=== PATIENT | female | born 1965 | race Caucasian/White ===

== ENCOUNTER → 2016-04-09 | Outpatient (CLI) | payer OTHER ==
--- NOTE | 2016-04-09 09:53 | DIAGNOSTIC IMAGING REPORT ---
CHEST 2 VIEWS ROUTINE CLINICAL HISTORY: COUGH, FEVER, CHEST PAIN COMPARISON STUDY: 08/01/2015 FINDINGS: The cardiac and mediastinal contours remain stable. There is chronic interstitial thickening unchanged the prior study. There is no acute parenchymal consolidation. There is no overt failure. There are no pleural effusions.[ IMPRESSION: Stable chronic interstitial thickening. No acute findings. Electronically signed by: Hermes Palmer M.D. 04/09/2016 9:51 AM Dictated Date/Time: 04/09/2016 9:51 AM
== END | disposition home or self-care (01) ==
LOC: C.RADBC 08:37
PROVIDERS: ATTEND Anesthesiology
DX: R05 Cough (principal); R50.9 Fever, unspecified; R07.9 Chest pain, unspecified

== ENCOUNTER 2016-10-17 10:09 | Emergency (ER) | payer OTHER ==
[~2016-10-17] VITALS: Ht 154.9 cm; Wt 56.0 kg
[2016-10-17 10:14] VITALS: BP 153/89; PULSE 87; TEMP 36.9; O2SAT 97; Ht 154.9 cm; Wt 56.0 kg
--- NOTE | 2016-10-17 14:35 | EMERGENCY ROOM VISIT NOTE ---
History First contact with patient: 10:25 Chief Complaint: EYE ASSESSMENT Stated Complaint: SPLASHED IN EYE WHILE AT WORK History of Present Illness The patient is a 51 year old female employee at the [employer] who presents to the Emergency Room with complaints of a splash to her eye at work this morning. 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 The patient reports that Moira has dementia, and that she was laying across to the C-arm table to hold her hands while the procedure was performed. She reports that when the Luer syringe was removed, some of the blood and fluid in the syringe squirted her in the right eye. She reports that there was blood in the fluid. The irrigated her eyes with approximately 500 mL of normal saline before being sent to the emergency department for further evaluation. Source patient consent for baseline testing was also secured from the patient's son, and question was sent via [facility] to the hospital for further testing. The patient denies any blurred vision or eye discomfort. Her tetanus immunization is up-to-date. She has undergone the hepatitis B immunization series. Review of Systems 10 system review was performed and was negative except for pertinent positives and negatives as indicated in history of present illness Past Medical/Surgical History Medical Problems: (1) Adhesive Capsulitis Of Left Shoulder (2) Hypertension Nos (3) Lumbago (4) Pneumonia, Organism Nos (5) Tobacco Use Disorder Family History Heart disease Social History Smoking Status: Current Every Day Smoker Alcohol Use: occasionally Marital Status: Occupation Status: employed Current/Historical Medications No Active Prescriptions or Reported Meds Physical Exam Vital Signs Date Time Temp Pulse Resp B/P (MAP) Pulse Ox O2 Delivery O2 Flow Rate FiO2 10/17/16 10:14 36.9 87 16 153/89 97 Right Eye Acuity: 20/25 glasses Left Eye Acuity: 20/25 glasses Pain Rating (0-10): 0 Physical Exam CONSTITUTIONAL: Healthy and well nourished. Alert and oriented X 3 with positive affect. Patient does not appear in any acute distress. HEENT: Normocephalic, atraumatic. Pupils equal, round and reactive. No right conjunctival injection or mucopurulent drainage from the eye. EOMs intact without discomfort. CARDIOVASCULAR: Normal rate and rhythm without murmurs, rubs or gallops. RESPIRATORY: Clear to auscultation in all tomas without wheezing, rhonchi or stridor. NECK: Full active range of motion without discomfort. INTEGUMENTARY: No rash or other significant dermatologic conditions noted. NEUROLOGIC: No focal neurologic deficits noted. Medical Decision & Procedures ED Course Patient history and physical exam were performed. Nurse's notes were reviewed. Vital signs were reviewed, showing an elevated blood pressure 153/89. Visual acuity was normal. I also discussed the case with Shannon Angelo with [employer]. She will follow source patient labs, and call the patient with results. Because of blood exposure to mucous membranes, I also suggested baseline testing. The patient agreed to baseline HIV testing as well, and signed an informed consent. The patient left immediately after labs were drawn as her office is short staffed. Further care and follow-up will be arranged through [employer]. I did also recommend that the patient follow up with her PCP for blood pressure recheck. Medical Decision Medication Reconcilliation Current Medication List: was personally reviewed by me Blood Pressure Screening Patient's blood pressure: Elevated blood pressure Blood pressure disposition: Referred to PCP Impression Primary Impression: Exposure to bloodborne pathogen Additional Impressions: Work related injury Elevated blood pressure reading Departure Information Dispostion Home / Self-Care Condition GOOD Prescriptions No Active Prescriptions or Reported Meds Referrals Shannon Angelo (Family) Forms HOME CARE DOCUMENTATION FORM, IMPORTANT VISIT INFORMATION Patient Instructions My [facility] [employer] [facility] Additional Instructions [facility] will contact you with any further follow-up requirements Problem Qualifiers
== END 2016-10-17 10:58 | disposition home or self-care (01) ==
LOC: C.EDB 10:10 → C.EDC 10:58
DX: Z77.21 Contact with and (suspected) exposure to potentially hazardous body fluids (principal); I10 Essential (primary) hypertension; F17.210 Nicotine dependence, cigarettes, uncomplicated

== ENCOUNTER → 2017-10-21 | Outpatient (CLI) | payer OTHER | END | disposition home or self-care (01) | LOC: C.LABBC 07:19 | PROVIDERS: ATTEND Nurse Practitioner | DX: Z00.00 Encounter for general adult medical examination without abnormal findings (principal); Z13.220 Encounter for screening for lipoid disorders; Z13.1 Encounter for screening for diabetes mellitus ==